=== PATIENT | female | born 1995 | race Caucasian/White ===

== ENCOUNTER 2022-05-09 12:42 | Emergency (ER) | payer OTHER, SELFPAY ==
--- NOTE | ~2022-05-09 | XR_ITS ---
XR chest 2V DATE: 05/09/2022 16:34 INDICATION: Tachycardia, near syncopal episode. TECHNIQUE: PA and lateral views COMPARISON: None FINDINGS: Normal heart size. No hilar or mediastinal enlargement. Bilateral hyperinflation. No pulmon maia infiltrate or consolidation. No pleural effusion or pulmonary vascular congestion or pneumothorax . IMPRESSION: Bilateral hyperinflation Reviewed, dictated and finalized at location B. IMPRESSION: Bilateral hyperinflation
--- NOTE | ~2022-05-09 | CT_ITS ---
EXAMINATION: CT brain wo con DATE: 05/09/2022 16:30 INDICATION: Headache, paresthesia . TECHNIQUE: Computed tomography (CT) of the head was performed without intravenous contrast. The mA wa s adjusted according to patient size. Iterative reconstruction technique was employed. The dose-lengt h product was 605.33 mGy-cm. COMPARISON: None FINDINGS: No acute intracranial hemorrhage or extra-axial fluid collection. No hydrocephalus, mass, or herniation. No acute ischemic infarct. Unremarkable dural venous sinus attenuation. No acute osseous abnormality. The aerated spaces are clear. Bilateral basal ganglia calcification. IMPRESSION: No acute intracranial process. Reviewed, dictated and finalized at location K.
[2022-05-09 12:47] VITALS: BP 132/79; PULSE 75; RESP 18; TEMP 36.6; O2SAT 100
--- NOTE | 2022-05-09 12:50 | ECG_ITS ---
Measurements Intervals [place] Rate: 75 P: -7 HI: 136 QRS: 76 QRSD: 77 T: 50 QT: 363 QTc: 405 Interpretive Statements SINUS RHYTHM NORMAL ECG NO PREVIOUS ECG AVAILABLE FOR COMPARISON Electronically Signed On 05-09-2022 14:20:11 CDT by Shaka Mccauley M.D.
[2022-05-09 13:15] LABS: Basophils Percent Auto 0.5 % (0.2-1.2); Eosinophils Absolute Auto 0.1 K/mm3 (0-0.3); Eosinophils Percent Auto 1.3 % (0-4.4); Hematocrit 40.8 % (37.0-47.0); Hemoglobin 13.3 g/dL (12.0-15.0); Immature Granulocyte Absolute 0.01 K/mm3 (0.00-0.031); Immature Granulocyte Percent A 0.2 % (0-0.5); Lymphocytes Absolute Auto 1.37 K/mm3 (0.9-3.2); Lymphocytes Percent Auto 21.5 % (18.3-44.2); Mean Corpuscular HGB Conc 32.6 g/dl (32-36); Mean Corpuscular Hemoglobin 29.8 pg (26-34); Mean Corpuscular Volume 91.5 fl (80-100); Mean Platelet Volume 11.4 fl (7.4-10.4); Monocytes Absolute Auto 0.4 K/mm3 (0.1-0.6); Neutrophils Absolute Auto 4.5 K/mm3 (1.3-6.7); Neutrophils Percent Auto 70.5 % (45.5-73.1); Platelet Count Result 206 k/mm3 (150-375); Red Blood Count 4.46 M/mm3 (4.2-5.4); Red Cell Distribution Width 12.1 % (11.5-14.5); White Blood Count 6.4 K/mm3 (4.5-10.0)
[2022-05-09 13:26] LABS: Alanine Aminotransferase 17 U/L (6-35); Albumin Level 4.7 g/dL (3.5-5.1); Alkaline Phosphatase 68 U/L (38-126); Anion Gap 11 mmol/L (8-16); Aspartate Amino Transferase 27 U/L (14-36); Bilirubin,Total 0.5 mg/dL (0.2-1.3); Blood Urea Nitrogen 13 mg/dL (7-17); Calcium 9.1 mg/dL (8.4-10.2); Carbon Dioxide 24 mmol/L (22-30); Chloride 100 mmol/L (98-107); Estimated CRCL calculation 84 ml/min; Estimated Glomerular Filt Rate > 60; Glucose 116 mg/dL (65-110); Potassium 3.7 mmol/L (3.4-5.0); Sodium 135 mmol/L (137-145)
[2022-05-09 15:36] VITALS: BP 124/76; PULSE 71; RESP 16; O2SAT 100
--- NOTE | 2022-05-09 16:02 | ED.DIZZY ---
HPI - Dizziness General Chief Complaint: Dizziness Stated Complaint: had an episode, blurred vision, rapid hr Time Seen by Provider: 05/09/22 15:48 Source: patient Mode of arrival: ambulatory Limitations: no limitations History of Present Illness HPI Narrative: Patient is 26 years old white female came to the emergency room by private car complaining having an episode of feeling like her heart was racing, lightheadedness, numbness of the face, tongue and left upper extremity associated with headache mainly on the left side the symptoms lasted for 1 hour then resolved. Currently patient is asymptomatic. Patient had similar symptoms July 2021, did not see any doctor at that time. Her mother have strong history of migraine headache. Patient under a lot of stress lately. Patient denies any fever, chills, nausea, vomiting or respiratory symptoms. Patient does not take medicine at home, does not smoke or uses marijuana, drinks occasionally, and contraceptive pills Related Data Home Medications Medication Instructions Recorded Confirmed norgestimate 0.18 mg/0.215 mg/0.25 1 tablet PO DAILY 05/09/22 05/09/22 mg-ethinyl estradiol 25 mcg tablet ([id number]) Allergies Allergy/AdvReac Type Severity Reaction Status Date / Time No Known Allergies Allergy Verified 05/09/22 15:36 Review of Systems Review of Systems: All systems reviewed & are unremarkable except as noted in HPI and below Exam Narrative: General appearance: Well-developed, well-nourished Skin: Normal color Head: Normocephalic, nontraumatic Eyes: Clear conjunctiva ENT: Oropharynx normal, ears normal, nose normal Neck: Supple, nontender Chest and respiratory: Airway patent, no respiratory distress, no accessory muscle use Heart: Regular rate/rhythm Abdomen: Soft, nontender, no organomegaly, quiet bowel sounds Vascular: Normal peripheral pulses, normal capillary refill. Musculoskeletal: Normal range of motion, nontender back Neurologic: Alert and oriented ?3, [employer] is normal as tested, no gross motor deficit Course Course Emergency Course: Resolved. I believe patient had an episode of migraine headache with aura, resolved within 1 hour, currently patient is asymptomatic. Patient had similar symptoms July 2021, did not follow-up with a physician at that time. Patient will be referred to Dr. Ayala for follow-up. Vital Signs Vital signs: Vital Signs Temperature 36.6 C 05/09/22 12:47 Pulse Rate 75 05/09/22 12:47 Respiratory Rate 18 05/09/22 12:47 Blood Pressure 132/79 05/09/22 12:47 Pulse Oximetry 100 05/09/22 12:47 Oxygen Delivery Room Air 05/09/22 12:47 Temperature 36.6 C 05/09/22 12:47 Pulse Rate 60 05/09/22 17:08 Respiratory Rate 13 05/09/22 17:08 Blood Pressure 103/68 05/09/22 17:08 Pulse Oximetry 100 05/09/22 17:08 Oxygen Delivery Room Air 05/09/22 12:47 MDM - Dizziness Differential Diagnosis Differential diagnosis: Likely cerebrovascular accident, transient cerebral ischemia and other (Migraine headache, and anxiety related symptoms) Lab Data Result diagrams: 05/09/22 12:56 05/09/22 12:56 Labs: Lab Results 05/09/22 05/09/22 05/09/22 Range/Units 12:56 12:56 16:14 WBC 6.4 (4.5-10.0) K/mm3 RBC 4.46 (4.2-5.4) M/mm3 Hgb 13.3 (12.0-15.0) g/dL Hct 40.8 (37.0-47.0) % MCV 91.5 (80-100) fl MCH 29.8 (26-34) pg MCHC 32.6 (32-36) g/dl RDW 12.1 (11.5-14.5) % Plt Count 206 (150-375) k/mm3 MPV 11.4 H (7.4-10.4) fl Immature Gran % (Auto) 0.2 (0-0.5) % Neut % (Auto) 70.5 (45.5-73.1) % Lymph % (Auto) 21.5 (18.3-44.2) % Mon
[2022-05-09 16:40] LABS: Troponin I < 0.012 ng/mL (0.000-0.034)
[2022-05-09] MEDS: SODIUM CHLORIDE 0.9% IV 1,000 ML 999 ML IV CONT (16:43)
[2022-05-09 17:08] VITALS: BP 103/68; PULSE 60; RESP 13; O2SAT 100
[2022-05-09 18:16] VITALS: BP 101/67; PULSE 66; RESP 12; O2SAT 100
== END 2022-05-09 18:17 | disposition home or self-care (01) ==
PROVIDERS: Physician Assistant; Emergency Provider Emergency Medicine
DX: G43.909 Migraine, unspecified, not intractable, without status migrainosus (principal); F41.9 Anxiety disorder, unspecified
CPT/HCPCS: 36415; 70450; 71046; 80053; 84484; 85025; 93005; 96360; 99284; J7030

== ENCOUNTER 2022-07-11 06:33 | Outpatient (CLI) | payer OTHER, SELFPAY ==
--- NOTE | 2022-07-11 11:16 | P.NEURO_ITS ---
Neurology EEG Report General Information Date of Study: 07/11/22 TEST eeg DIAGNOSIS Amnesia CONDITION OF RECORDING awake drowsy and sleep EEG NUMBER [id number] CLINICAL HISTORY patient reports she has had 2 episodes that started with a bad headache and then she becomes confused and has a headache with difficulties in comprehension. EEG DESCRIPTION Basic resting occipital frequency consists of low to medium voltage 10 to 11 hertz per 2nd alpha admixed with low-voltage 15 to 18 hertz per 2nd beta. Low- voltage beta activity seen diffusely admixed with waxing and waning posterior alpha rhythm during drowsiness. Bilateral symmetrical sleep activity seen during sleep. Hyperventilation not done. Photic stimulation produced normal drive. Non paroxysmal. Nonfocal. Nonlateralizing. IMPRESSION Normal record
== END 2022-07-11 06:34 | disposition home or self-care (01) ==
LOC: ANHNEURO 06:35
PROVIDERS: PCP Family Medicine; Visit Provider Psychiatry & Neurology Neurology
DX: R41.3 Other amnesia (principal)
CPT/HCPCS: 95816

== ENCOUNTER 2022-07-18 07:55 | Outpatient (CLI) | payer OTHER, SELFPAY ==
--- NOTE | ~2022-07-18 | MR_ITS ---
EXAMINATION: MR brain/brain stem wo con DATE: 07/18/2022 10:01 INDICATION: Seizure. Migraine headache. TECHNIQUE: Magnetic resonance imaging (MRI) of the brain and brainstem was performed without intraven ous contrast. COMPARISON: Head CT 05/09/2022 FINDINGS: There is no intracranial hemorrhage, acute infarction, or abnormal intracranial mass lesion . The hippocampi are normal and symmetric. The ventricles are normal in size. The orbits are normal. The paranasal sinuses are clear. The mastoid air cells are normal. IMPRESSION: 1. Normal brain. Reviewed, dictated and finalized at location A. IMPRESSION: 1. Normal brain.
== END 2022-07-18 07:56 | disposition home or self-care (01) ==
PROVIDERS: PCP Family Medicine; Visit Provider Psychiatry & Neurology Neurology
DX: R56.9 Unspecified convulsions (principal); G43.909 Migraine, unspecified, not intractable, without status migrainosus
CPT/HCPCS: 70551